=== PATIENT | female | born 1995 | race Caucasian/White ===

== ENCOUNTER 2019-02-27 11:55 | Emergency (ER) | payer OTHER ==
[~2019-02-27] VITALS: Ht 167.6 cm; Wt 54.4 kg
--- OUTSIDE RECORDS SUMMARY | ~2019-02-27 | XMS | Encounter Summary ---
Demographics + + + | Address | [address] | | | [place] [address] | + + + | Home Phone | | + + + | Preferred Language | Unknown | + + + | Marital Status | Single | + + + | Bahai Affiliation | Unknown | + + + | Race | Unknown | + + + | Ethnic Group | Unknown | + + + Author + + + | Author | [facility] | | | and [place] | + + + | Organization | [facility] | | | and [place] | + + + | Address | Unknown | + + + | Phone | Unavailable | + + + Support + + + + + | Name | Relationship | Address | Phone | + + + + + | Radha Cooney | ECON | [address] | | | | | [place] [address] | | + + + + + | Gerda Robersonan Patel | ECON | [address] | | | | | [place] | | | | | [address] | | + + + + + Care Team Providers + +------+ + | Care Manager Psychology Name | Role | Phone | + +------+ + | No, Physician | PCP | Unavailable | + +------+ + Encounter Details +--------+ + + + + | Date | Type | Department | Care Team | Description | +--------+ + + + + | 02/05/ | Telephone | [facility] | No, Physician | | | 2016 | | [facility] | | | | | | CENTER [address] | | | | | | [place] | | | | | | [address] | | | | | | [phone] | | | +--------+ + + + + Social History + +-------+ +--------+------+ | Tobacco Use | Types | Packs/Day | Years | Date | | | | | Used | | + +-------+ +--------+------+ | Light Tobacco Smoker | | | | | + +-------+ +--------+------+ + +---+---+---+ | Smokeless Tobacco: | | | | | Never Used | | | | + +---+---+---+ + + +---------+ + | Alcohol Use | Drinks/Week | oz/Week | Comments | + + +---------+ + | No | | | | + + +---------+ + + + + | Sex Assigned at | Date Recorded | | | | + + + | Not on file | | + + + + + + + | Job Start Date | Occupation | Industry | + + + + | Not on file | Not on file | Not on file | + + + + + + + + | Travel History | Travel Start | Travel End | + + + + + + | No recent travel history available. | + + documented as of this encounter Plan of Treatment Not on filedocumented as of this encounter Visit Diagnoses Not on filedocumented in this encounter"
--- OUTSIDE RECORDS SUMMARY | ~2019-02-27 | XMS | Encounter Summary ---
Demographics + + + | Address | [address] | | | [place] [address] | + + + | Home Phone | | + + + | Preferred Language | Unknown | + + + | Marital Status | Single | + + + | Jain Affiliation | Unknown | + + + | Race | Unknown | + + + | Ethnic Group | Unknown | + + + Author + + + | Author | [facility] | | | and [place] | + + + | Organization | [facility] | | | and [place] | + + + | Address | Unknown | + + + | Phone | Unavailable | + + + Support + + + + + | Name | Relationship | Address | Phone | + + + + + | Radha Cooney | ECON | [address] | | | | | [place] [address] | | + + + + + | Gerda He Patel | ECON | [address] | | | | | [place] | | | | | [address] | | + + + + + Care Team Providers + +------+ + | Care Container Crane Operator Name | Role | Phone | + +------+ + | No, Physician | PCP | Unavailable | + +------+ + Reason for Visit +--------+ + | Reason | Comments | +--------+ + | Nausea | | +--------+ + Encounter Details +--------+ + + + + | Date | Type | Department | Care Team | Description | +--------+ + + + + | 02/03/ | Emergency | [facility] | Logan Nunez | Bilious vomiting | | 2017 | | [facility] | [address] | with nausea (Primary | | | | CENTER [address] | [address] | Dx); Diarrhea of | | | | [place], [place] | [place] [address] | presumed infectious | | | | [address] | [phone] | origin | | | | [phone] | | | +--------+ + + + [...] + + documented as of this encounter Last Filed Vital Signs + + + + + | Vital Sign | Reading | Time Taken | Comments | + + + + + | Blood Pressure | 105/51 | 02/03/2017 8:46 AM | | | | | PST | | + + + + + | Pulse | 71 | 02/03/2017 8:46 AM | | | | | PST | | + + + + + | Temperature | 36.1 C (97 F) | 02/03/2017 7:14 AM | | | | | PST | | + + + + + | Respiratory Rate | 18 | 02/03/2017 7:14 AM | | | | | PST | | + + + + + | Oxygen Saturation | 100% | 02/03/2017 8:46 AM | | | | | PST | | + + + + + | Inhaled Oxygen | - | - | | | Concentration | | | | + + + + + | Weight | 51.3 kg (113 lb) | 02/03/2017 7:14 AM | | | | | PST | | + + + + + | Height | 170.2 cm (5' 7") | 02/03/2017 7:14 AM | | | | | PST | | + + + + + | Body Mass Index | 17.7 | 02/03/2017 7:14 AM | | | | | PST | | + + + + + documented in this encounter Discharge Instructions Instructions Page, Logan Pereira MD - 02/03/2017The Zofran should help you to stop vomitin g and if you continue to have significant diarrhea hrmw-soz-fkohmuk loperamide(Imodium)- one 2 mg tablet after each loose stool up to 8 doses a day can make a significant difference. B ecause of the IV fluids you've gotten you will not need to drink much today-- that will help rest your intestinal tract. AttachmentsThe following attachments cannot be sent through Care Everywhere.Vomiting and Di arrhea, Nonspecific (Adult) (Tamazight)documented in this encounter Medications at Time of Discharge + + + +---------+ + + | Medication | Sig | Dispensed | Refills | Start | End Date | | | | | | Date | | + + + +---------+ + + | ondansetron | Take 1 tablet by | 24 | 0 | 02/04/20 | | | (ZOFRAN ODT) 4 mg | mouth every 8 hours | tablet | | 17 | | | disintegrating | as needed for | | | | | | tablet | Nausea. | | | | | + + + +---------+ + + documented as of this encounter Plan of Treatment Not on filedocumented as of this encounter Visit Diagnoses + + | Diagnosis | + + | Bilious vomiting with nausea - Primary | + + | Diarrhea of presumed infectious origin | + + documented in this encounter Administered Medications + +--------+ +------+------+------+ | Medication Order | MAR | Action | Dose | Rate | Site | | | Action | Date | | | | + +--------+ +------+------+------+ | HYDROmorphone (DILAUDID) | Given | 02/04/20 | 1 mg | | | | injection 1 mg 1 mg, | | 17 8:14 | | | | | Intravenous, EVERY 1 HOUR PRN, | | AM PST | | | | | Pain, Starting 02/03/17 at | | | | | | | 0743, For 2 doses | | | | | | + +--------+ +------+------+------+ +---+---+ | | | +---+---+ + +-------+ +------+---+---+ | ondansetron (ZOFRAN) injection | Given | 02/04/20 | 4 mg | | | | 4 mg 4 mg, Intravenous, EVERY 1 | | 17 8:13 | | | | | HOUR PRN, Nausea, Vomiting, | | AM PST | | | | | Starting 02/03/17 at 0737, | | | | | | | For 2 doses | | | | | | + +-------+ +------+---+---+ +---+---+ | | | +---+---+ + +---------+ +--------+-------+---+ | sodium chloride 0.9% (NS) bolus | New Bag | 02/04/20 | 1,000 | 2000 | | | 1,000 mL 1,000 mL, Intravenous, | | 17 8:13 | mLs | mL/hr | | | Administer over 30 Minutes, | | AM PST | | | | | ONCE, 02/03/17 at 0800, For 1 | | | | | | | dose | | | | | | + +---------+ +--------+-------+---+ +---+---+ | | | +---+---+ documented in this encounter
--- OUTSIDE RECORDS SUMMARY | ~2019-02-27 | XMS | Encounter Summary ---
Demographics + + + | Address | [address] | | | [place] [address] | + + + | Home Phone | | + + + | Preferred Language | Unknown | + + + | Marital Status | Single | + + + | Methodist Affiliation | Unknown | + + + | Race | Unknown | + + + | Ethnic Group | Unknown | + + + Author + + + | Author | [facility] | | | and [place] | + + + | Organization | [facility] | | | and [place] | + + + | Address | Unknown | + + + | Phone | Unavailable | + + + Support + + + + + | Name | Relationship | Address | Phone | + + + + + | Radha Cooney | ECON | [address] | | | | | [place] [address] | | + + + + + | Gerda He Patel | ECON | [address] | | | | | [place] | | | | | [address] | | + + + + + Care Team Providers + +------+ + | Care Advertising Director Name | Role | Phone | + [...] | [address] [place], [place] | [place] [address] | presumed infectious | | | | [address] | [phone] | origin | | | | [phone] | | | +--------+ + + + [...] if you continue to have significant diarrhea wkqd-yss-fervjgx loperamide(Imodium)- one 2 mg tablet after each loose stool up to 8 doses a day can make a significant difference. B ecause of the IV fluids you've gotten you will not need to drink much today-- that will help rest your intestinal tract. AttachmentsThe following attachments cannot be sent through Care Everywhere.Vomiting and Di arrhea, Nonspecific (Adult) (Serbian)documented in this encounter Medications at Time of [...]
--- OUTSIDE RECORDS SUMMARY | ~2019-02-27 | XMS | Clinical Summary ---
Demographics + + + | Address | [address] | | | [place] [address] | + + + | Home Phone [...] + + + | Author | [facility] | | | and [place] | + + + | Organization | [facility] | | | and [place] | + + + | Address | Unknown | + + + | Phone | Unavailable | + + + Support + + + + + | Name | Relationship | Address | Phone | + + + + + | Radha Cooney | ECON | [address] | | | | | [place] [address] | | + + + + + | Radha Robersonan Jorge | ECON | [address] | | | | | [place] | | | | | [address] | | + + + + + Care Team Providers + +------+ + | Care Mission Support Specialist Name | Role | Phone | + +------+ + | No, Physician | PCP | Unavailable | + +------+ + Allergies No Known Allergies Medications + + + +---------+------+------+-------+ | Medication | Sig | Dispensed | Refills | Star | End | Statu | | | | | | t | Date | s | | | | | | Date | | | + + + +---------+------+------+-------+ | ondansetron | Take 1 tablet by | 24 | 0 | 11/2 | | Activ | | (ZOFRAN ODT) 4 mg | mouth every 8 hours | tablet | | 6/20 | | e | | disintegrating | as needed for | | | 17 | | | | tablet | Nausea. | | | | | | + + + +---------+------+------+-------+ Active Problems Not on file Social History + +-------+ +--------+------+ | Tobacco [...] recent travel history available. | + + Last Filed Vital Signs + + + [...] | | + + + + + Plan of Treatment + + + + + | Health Maintenance | Due Date | Last Done | Comments | + + + + + | Vaccine: HPV (1 - | | | | | Female 3-dose | 2 | | | | series) | | | | + + + + + | Vaccine: | | | | | Dtap/Tdap/Td (1 - | 6 | | | | Tdap) | | | | + + + + + | Cervical Cancer | | | | | Screening (Pap) | 8 | | | + + + + + | Vaccine: Influenza | | | | | (#1) | 9 | | | + + + + + Results Not on filefrom Last 3 Months Insurance + +--------+ +--------+ +---------+------+ | Payer | Benefi | Subscriber | Effect | Phone | Address | Type | | | t Plan | ID | [id number] | | | | | | / | | Dates | | | | | | Group | | | | | | + +--------+ +--------+ +---------+------+ | [employer] | [place] | [id number] | 8/1/20 | [phone] | | PPO | | | [employer] | | 17-Pre | 2 | | | | | E | | sent | | | | | | FIRST | | | | | | | | CHOICE | | | | | | + +--------+ +--------+ +---------+------+ + +--------+ +--------+ + + | Guarantor Name | Accoun | Relation to | Date | Phone | Billing Address | | | t Type | Patient | of | | | | | | | | | | + +--------+ +--------+ + + | Molly Patel | Person | Self [birth year] | [address] | | [place] | rm/Jefry | | 1995 | [phone] | [place] | | | [place] | | | [address] (Home) | [address] | + +--------+ +--------+ + + | RADHA PATEL | Person | Father | [birth year] | [address] | | | al/Fam | | 1972 | [phone] | [place] | | | [place] | | | [address] (Home) | [address] | + +--------+ +--------+ + + Advance Directives + + + + + | Type | Date Recorded | Patient | Explanation | | | | 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
--- OUTSIDE RECORDS SUMMARY | ~2019-02-27 | XMS | Clinical Summary ---
Demographics + + + | Address | [address] | | | [place] [address] | + + + | Home Phone | | + + + | Preferred Language | Unknown | + + + | Marital Status | Single | + + + | Mormonism Affiliation | Unknown | + + + | Race | Unknown | + + + | Ethnic Group | Unknown | + + + Author + + + | Author | [facility] | | | and [place] | + + + | Organization | [facility] | | | and [place] | + + + | Address | Unknown | + + + | Phone | Unavailable | + + + Support + + + + + | Name | Relationship | Address | Phone | + + + + + | Rdaha Cooney | ECON | [address] | | | | | [place] [address] | | + + + + + | Radha Robersonan Jorge | ECON | [address] | | | | | [place] | | | | | [address] | | + + + + + Care Team Providers + +------+ + | Care Support Assistant Name | Role | Phone | + [...] +--------+ +---------+------+ | [employer] | [place] | [id number] | 8/1/20 | [phone] | | PPO [...] [place] | | | [address] (Home) | [address] | + +--------+ +--------+ + + | RADHA PATEL | Person | Father | 08[birth year]16[birth year] | | [address] | | | al/Fam | | 1972 | [phone] | [place] | | | [place] | | | 6 (Home) | [address] | + +--------+ +--------+ + + Advance Directives + + + + + | Type | Date Recorded | Patient | Explanation | | | | 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
--- OUTSIDE RECORDS SUMMARY | ~2019-02-27 | XMS | Encounter Summary ---
Demographics + + + | Address | [address] | | | [place] [address] | + + + | Home Phone | | + + + | Preferred Language | Unknown | + + + | Marital Status | Single | + + + | Presybeterian Affiliation | Unknown | + + + | Race | Unknown | + + + | Ethnic Group | Unknown | + + + Author + + + | Author | [facility] | | | and [place] | + + + | Organization | [facility] | | | and [place] | + + + | Address | Unknown | + + + | Phone | Unavailable | + + + Support + + + + + | Name | Relationship | Address | Phone | + + + + + | Radha Cooney | ECON | [address] | | | | | [place] [address] | | + + + + + | Gerda Robersonan Patel | ECON | [address] | | | | | [place] | | | | | [address] | | + + + + + Care Team Providers + +------+ + | Care Video Operator Name | Role | Phone | [...] [place] | | | | | | [address] | | | | | | [phone] | | | +--------+ + + + [...]
[2019-02-27] MEDS ORDERED: ONDANSETRON ODT8 MG PO (13:42)
== END 2019-02-27 13:56 | disposition home or self-care (01) ==
LOC: ED 11:55
DX: A08.4 Viral intestinal infection, unspecified (principal)
CPT/HCPCS: 80053; 85025; 87502; 96374; 96375; 99283-25; J1885; J2405; J7030